=== PATIENT | female | born 1995 | race Caucasian/White ===

== ENCOUNTER 2017-10-15 08:14 | Day surgery (SDC) | payer MEDICAID ==
[2017-10-14 15:57] LABS: BASOPHILS 0.4 % (0-2); EOSINOPHILS 1.6 % (0-7); HEMATOCRIT 35.5 % (36.0-48.0); HEMOGLOBIN 11.4 g/dL (12-16); IMMATURE GRANULOCYTES 0.3 % (0-5); LYMPHOCYTES 33.2 % (15-50); MCH 24.8 pg (26.0-34.0); MCHC 32.1 g/dL (31.0-37.0); MCV 77.2 fL (80.0-100.0); MONOCYTES 6.5 % (2-11); PLATELET COUNT 269 10x3/uL (130-400); RDW 13.9 % (11.5-14.5); WBC 10.3 10x3/uL (4.8-10.8)
[~2017-10-15] VITALS: Ht 180.3 cm; Wt 122.0 kg
--- NOTE | ~2017-10-15 | OP ---
PATIENT NAME: GABRIEL MCKEON MEDICAL RECORD: [id number] :94 LOCATION:D.OPS ADMISSION DATE: SURGEON: JOSE A VIRAMONTES MD DATE OF OPERATION: 10/15/2017 PREOPERATIVE DIAGNOSES: 1. Polycystic ovarian syndrome. 2. Amenorrhea. POSTOPERATIVE DIAGNOSES: 1. Polycystic ovarian syndrome. 2. Amenorrhea. PROCEDURE: Hysteroscopy, dilation and curettage. SURGEON: Jose A Viramontes MD ESTIMATED BLOOD LOSS: Minimal. INTRAVENOUS FLUIDS: Per anesthesia record. ANESTHESIA: General endotracheal. FINDINGS: 1. Grossly normal-appearing external genitalia and cervix. 2. Grossly normal endometrial cavity with abundant proliferative phase endometrium. SPECIMENS: Endometrial curettings. COMPLICATIONS: None apparent. HYSTEROSCOPIC FLUID LOSS: Less than 100 cc of 0.9 normal. DESCRIPTION OF PROCEDURE: The patient taken to the operating room where general anesthesia was achieved without difficulty. The patient was then prepped and draped in normal sterile fashion in dorsal lithotomy position in the [facility]. Following prep and drape, the bladder was drained of less than 100 cc of clear yellow urine from the bladder and a Graves speculum was then placed into the vagina. The cervix was identified and grasped on its anterior lip with a single tooth tenaculum and a dilation was performed for approximately 6 mm, at which point, the hysteroscope was introduced under direct visualization without resistance. Survey of the endometrial canal was performed and following removal of the hysteroscope, curettage was performed in all 4 quadrants of the uterus. Specimen was sent to pathology. Following the curettage, good hemostasis was noted from the cervical os and the single-tooth tenaculum was removed. Good hemostasis was noted from the single-tooth tenaculum site. The patient tolerated the procedure well and was transferred to postanesthesia recovery stable without incident. TRANSINT:[id number] Voice Confirmation ID: [id number] DOCUMENT ID: [id number] OPERATIVE REPORT [id number] GABRIEL MCKEON MICHAEL W MD at 1034 CC: [id number] DICTATION DATE: 10/24/17 0705 COMPOSITION WORKER: 10/24/17 1216 [facility] 10/15/17 [id number] [place] [address]
[~2017-10-15 08:14] MED LIST: ZESTRIL10 MG PO
[2017-10-15 09:28] VITALS: BP 134/81; Ht 180.3 cm; Wt 122.0 kg
[2017-10-15 09:39] LABS: HCG URINE NEGATIVE (NEGATIVE)
== END 2017-10-15 13:45 | disposition home or self-care (01) ==
LOC: D.OPS 08:14 → D.PAN 10:20 → D.OPS 10:30 → D.PAN 10:30 → D.OPS 13:45
PROVIDERS: Obstetrics & Gynecology
DX: E28.2 Polycystic ovarian syndrome (principal); N91.2 Amenorrhea, unspecified

== ENCOUNTER 2018-02-26 09:23 | Day surgery (SDC) | payer MEDICAID ==
[2018-02-24 15:56] LABS: BASOPHILS 0.5 % (0-2); EOSINOPHILS 1.3 % (0-7); HEMATOCRIT 37.3 % (36.0-48.0); HEMOGLOBIN 11.8 g/dL (12-16); IMMATURE GRANULOCYTES 0.2 % (0-5); LYMPHOCYTES 21.4 % (15-50); MCH 22.9 pg (26.0-34.0); MCHC 31.6 g/dL (31.0-37.0); MCV 72.3 fL (80.0-100.0); MEAN PLATELET VOLUME 9.1 fL (7.4-10.4); MONOCYTES 6.9 % (2-11); NEUTROPHILS 69.7 % (40-80); PLATELET COUNT 285 10x3/uL (130-400); RBC 5.16 10x6/uL (4.00-5.40); WBC 10.1 10x3/uL (4.8-10.8)
[2018-02-24 16:15] LABS: CALC OSMOLALITY 277 mosm/kg (275-300); CALCIUM 8.8 mg/dL (8.5-10.1); CHLORIDE - SERUM 105 mmol/L (98-107); CREATININE - SERUM 0.7 mg/dL (0.6-1.3); GLUCOSE 112 mg/dL (74-106); POTASSIUM - SERUM 3.7 mmol/L (3.5-5.1); SODIUM 140 mmol/L (136-145); UREA NITROGEN 6 mg/dL (7-18); eGFR NON AFRICAN AMERICAN > 90 mL/min (90-120)
[~2018-02-26] VITALS: Ht 180.3 cm; Wt 124.3 kg
--- NOTE | ~2018-02-26 | OP ---
PATIENT NAME: GABRIEL MCKEON MEDICAL RECORD: [id number] :94 LOCATION:D.OPS ADMISSION DATE: SURGEON: JOSE A VIRAMONTES MD DATE OF OPERATION: 02/26/2018 PREOPERATIVE DIAGNOSES: History of endometrial hyperplasia. POSTOPERATIVE DIAGNOSIS: History of endometrial hyperplasia. PROCEDURES: Hysteroscopy and D&C. SURGEON: Jose A Viarmontes MD ANESTHESIA: General endotracheal. INTRAVENOUS FLUIDS: Per anesthesia record. COMPLICATIONS: None apparent. SPECIMENS: Endometrial curettings. FINDINGS: Grossly normal-appearing external genitalia, cervix, and endometrial canal. PROCEDURE IN DETAIL: The patient was taken to the operating room, where general anesthesia was achieved without any difficulty. The patient was prepped and draped in normal sterile fashion in dorsal lithotomy position in the [facility]. At this point, the bladder was drained of a small amount of clear yellow urine and a Graves speculum was placed into the vagina. The cervix was then grasped on its anterior lip with a single-tooth tenaculum. The patient sounded to approximately 9 cm. Dilation to approximately 6 mm was then performed without resistance, so the hysteroscope was placed into the uterus. Survey of the endometrial canal revealed no gross pathology. Hysteroscope was then removed and then curettage was performed of all 4 quadrants of the endometrium with minimal blood loss. Tissue was sent for pathology. The tenaculum was then removed with good hemostasis noted. The speculum was then removed. The patient tolerated the procedure well, was transferred to postanesthesia recovery stable without incident. TRANSINT:[id number] Voice Confirmation ID: [id number] DOCUMENT ID: [id number] JOSE A VIRAMONTES MD at 1905 CC: [id number] DICTATION DATE: 03/28/18 1420 STAKE DRIVER: 03/28/18 1516 [facility] 02/26/18 [id number] [place] [id number]
[2018-02-26 07:59] VITALS: BP 137/77; Ht 180.3 cm; Wt 124.3 kg
[2018-02-26 08:32] LABS: HCG URINE NEGATIVE (NEGATIVE)
[~2018-02-26 09:23] MED LIST changes: +PRINIVIL20 MG; +ZYRTEC10 MG PO
== END 2018-02-26 12:24 | disposition home or self-care (01) ==
LOC: D.OPS 09:23
PROVIDERS: Anesthesiology; Obstetrics & Gynecology
DX: N85.00 Endometrial hyperplasia, unspecified (principal); Z01.812 Encounter for preprocedural laboratory examination

== ENCOUNTER 2018-06-26 08:24 | Emergency (ER) | payer MEDICAID ==
[~2018-06-26] VITALS: Ht 180.3 cm; Wt 120.9 kg
[2018-06-26 08:29] VITALS: Ht 180.3 cm; Wt 120.9 kg
[2018-06-26] MEDS ORDERED: MEGACE40 MG PO (08:33)
[2018-06-26] MEDS ORDERED: NORCO 10-325 TA1 TAB PO (09:34)
[2018-06-26 09:54] VITALS: BP 149/64
== END 2018-06-26 09:54 | disposition home or self-care (01) ==
LOC: D.ER 08:24
DX: S92.351A Displaced fracture of fifth metatarsal bone, right foot, initial encounter for closed fracture (principal); W18.31XA Fall on same level due to stepping on an object, initial encounter; Y93.89 Activity, other specified; Y92.019 Unspecified place in single-family (private) house as the place of occurrence of the external cause; M79.671 Pain in right foot

== ENCOUNTER → 2019-02-16 09:28 | Outpatient (CLI) | payer MEDICAID ==
[2018-06-26 08:29] VITALS: BMI 37.1
[~2019-02-16 09:28] MED LIST changes: +GLYBURIDE5 M1 PO; +MEGACE40 MG PO; +NORCO 10-325 TA1 TAB PO; +NORMODYNE / TR100 MG PO; +PRENAVITE1 TAB PO
[2019-02-16 10:10] LABS: HEMATOCRIT 34.2 % (36.0-48.0); HEMOGLOBIN 11.3 g/dL (12-16); LYMPHOCYTES 19.3 % (15-50); MCH 26.5 pg (26.0-34.0); MCV 80.1 fL (80.0-100.0); MEAN PLATELET VOLUME 8.8 fL (7.4-10.4); NEUTROPHILS 75.3 % (40-80); PLATELET COUNT 241 10x3/uL (130-400); RBC 4.27 10x6/uL (4.00-5.40); RDW 13.6 % (11.5-14.5); WBC 9.3 10x3/uL (4.8-10.8)
[2019-02-16 10:31] LABS: ALBUMIN 2.6 g/dL (3.4-5.0); ALKALINE PHOSPHATASE 70 U/L (46-116); ALT (SGPT) 14 U/L (10-68); BILIRUBIN - DIRECT 0.06 mg/dL (0.00-0.30); BILIRUBIN - INDIRECT 0.09 mg/dL (0.00-1.00); BILIRUBIN - TOTAL 0.15 mg/dL (0.2-1.3); CALC OSMOLALITY 279 mosm/kg (275-300); CALCIUM 8.2 mg/dL (8.5-10.1); CARBON DIOXIDE 22.3 mmol/L (21.0-32.0); CHLORIDE - SERUM 107 mmol/L (98-107); CREATININE - SERUM 0.5 mg/dL (0.6-1.3); GLUCOSE 152 mg/dL (74-106); PROTEIN - SERUM 6.5 g/dL (6.4-8.2); SODIUM 140 mmol/L (136-145); UREA NITROGEN 6 mg/dL (7-18); URIC ACID 3.5 mg/dL (2.6-7.2); eGFR NON AFRICAN AMERICAN > 90 mL/min (90-120)
[2019-02-18 09:37] LABS: PROTEIN - URINE 7.6 mg/dL (0.0-11.9)
== END | disposition home or self-care (01) ==
LOC: D.LDO 09:28
PROVIDERS: ATTEND Obstetrics & Gynecology
DX: O26.893 Other specified pregnancy related conditions, third trimester (principal); Z3A.28 28 weeks gestation of pregnancy

== ENCOUNTER → 2019-02-21 11:26 | Outpatient (CLI) | payer MEDICAID ==
[2018-06-26 08:29] VITALS: BMI 37.1
== END | disposition home or self-care (01) ==
LOC: D.LDO 11:26
PROVIDERS: ATTEND Obstetrics & Gynecology
DX: O24.419 Gestational diabetes mellitus in pregnancy, unspecified control (principal); O10.013 Pre-existing essential hypertension complicating pregnancy, third trimester; Z3A.28 28 weeks gestation of pregnancy

== ENCOUNTER → 2019-03-02 17:13 | Outpatient (CLI) | payer MEDICAID ==
[2018-06-26 08:29] VITALS: BMI 37.1
[~2019-03-02 17:13] MED LIST changes: +HYDROCODON-ACE1 EA10 PO; +IBUPROFEN600 MG PO
== END | disposition home or self-care (01) ==
LOC: D.LDO 17:13
PROVIDERS: ATTEND Obstetrics & Gynecology
DX: O10.013 Pre-existing essential hypertension complicating pregnancy, third trimester (principal); Z3A.30 30 weeks gestation of pregnancy; O16.3 Unspecified maternal hypertension, third trimester

== ENCOUNTER → 2019-03-05 09:58 | Outpatient (CLI) | payer MEDICAID ==
[2018-06-26 08:29] VITALS: BMI 37.1
== END | disposition home or self-care (01) ==
LOC: D.LDO 09:58
PROVIDERS: ATTEND Student in an Organized Health Care Education/Training Program
DX: O24.419 Gestational diabetes mellitus in pregnancy, unspecified control (principal)

== ENCOUNTER → 2019-03-08 10:36 | Outpatient (CLI) | payer MEDICAID ==
[2018-06-26 08:29] VITALS: BMI 37.1
== END | disposition home or self-care (01) ==
LOC: D.LDO 10:36
PROVIDERS: ATTEND Obstetrics & Gynecology
DX: O24.913 Unspecified diabetes mellitus in pregnancy, third trimester (principal); Z3A.31 31 weeks gestation of pregnancy; O16.3 Unspecified maternal hypertension, third trimester

== ENCOUNTER → 2019-03-11 14:55 | Outpatient (CLI) | payer MEDICAID ==
[2018-06-26 08:29] VITALS: BMI 37.1
[2019-03-11 15:43] LABS: BASOPHILS 0.1 % (0-2); EOSINOPHILS 0.7 % (0-7); HEMATOCRIT 35.7 % (36.0-48.0); HEMOGLOBIN 11.4 g/dL (12-16); IMMATURE GRANULOCYTES 0.3 % (0-5); LYMPHOCYTES 19.6 % (15-50); MCH 26.1 pg (26.0-34.0); MCHC 31.9 g/dL (31.0-37.0); MCV 81.9 fL (80.0-100.0); MEAN PLATELET VOLUME 9.1 fL (7.4-10.4); MONOCYTES 6.1 % (2-11); NEUTROPHILS 73.2 % (40-80); PLATELET COUNT 243 10x3/uL (130-400); RBC 4.36 10x6/uL (4.00-5.40); RDW 13.8 % (11.5-14.5); WBC 10.7 10x3/uL (4.8-10.8)
[2019-03-11 16:04] LABS: ALBUMIN 2.5 g/dL (3.4-5.0); ALKALINE PHOSPHATASE 81 U/L (46-116); ALT (SGPT) 12 U/L (10-68); BILIRUBIN - DIRECT 0.06 mg/dL (0.00-0.30); BILIRUBIN - INDIRECT 0.12 mg/dL (0.00-1.00); BILIRUBIN - TOTAL 0.18 mg/dL (0.2-1.3); CALC OSMOLALITY 276 mosm/kg (275-300); CALCIUM 8.4 mg/dL (8.5-10.1); CARBON DIOXIDE 22.6 mmol/L (21.0-32.0); CHLORIDE - SERUM 104 mmol/L (98-107); CREATININE - SERUM 0.6 mg/dL (0.6-1.3); GLUCOSE 147 mg/dL (74-106); POTASSIUM - SERUM 3.9 mmol/L (3.5-5.1); PROTEIN - SERUM 6.4 g/dL (6.4-8.2); SODIUM 138 mmol/L (136-145); UREA NITROGEN 7 mg/dL (7-18); URIC ACID 3.4 mg/dL (2.6-7.2); eGFR NON AFRICAN AMERICAN > 90 mL/min (90-120)
== END | disposition home or self-care (01) ==
LOC: D.LDO 14:55
PROVIDERS: ATTEND Obstetrics & Gynecology
DX: O24.419 Gestational diabetes mellitus in pregnancy, unspecified control (principal); O16.9 Unspecified maternal hypertension, unspecified trimester

== ENCOUNTER → 2019-03-15 09:28 | Outpatient (CLI) | payer MEDICAID ==
[2018-06-26 08:29] VITALS: BMI 37.1
== END | disposition home or self-care (01) ==
LOC: D.LDO 09:28
PROVIDERS: ATTEND Obstetrics & Gynecology
DX: O16.3 Unspecified maternal hypertension, third trimester (principal); Z3A.32 32 weeks gestation of pregnancy

== ENCOUNTER → 2019-03-18 15:09 | Outpatient (CLI) | payer MEDICAID ==
[2018-06-26 08:29] VITALS: BMI 37.1
== END | disposition home or self-care (01) ==
LOC: D.LDO 15:09
PROVIDERS: ATTEND Obstetrics & Gynecology
DX: O24.419 Gestational diabetes mellitus in pregnancy, unspecified control (principal); O16.9 Unspecified maternal hypertension, unspecified trimester

== ENCOUNTER → 2019-03-22 09:41 | Outpatient (CLI) | payer MEDICAID ==
[2018-06-26 08:29] VITALS: BMI 37.1
[2019-03-22 11:00] LABS: BASOPHILS 0.1 % (0-2); EOSINOPHILS 0.3 % (0-7); HEMATOCRIT 37.6 % (36.0-48.0); IMMATURE GRANULOCYTES 0.2 % (0-5); LYMPHOCYTES 17.9 % (15-50); MCH 26.1 pg (26.0-34.0); MCHC 31.9 g/dL (31.0-37.0); MCV 81.9 fL (80.0-100.0); MEAN PLATELET VOLUME 9.2 fL (7.4-10.4); MONOCYTES 4.4 % (2-11); NEUTROPHILS 77.1 % (40-80); PLATELET COUNT 231 10x3/uL (130-400); RBC 4.59 10x6/uL (4.00-5.40); RDW 13.9 % (11.5-14.5); WBC 9.4 10x3/uL (4.8-10.8)
[2019-03-22 11:31] LABS: CALC OSMOLALITY 276 mosm/kg (275-300); CALCIUM 8.7 mg/dL (8.5-10.1); CARBON DIOXIDE 23.4 mmol/L (21.0-32.0); CHLORIDE - SERUM 107 mmol/L (98-107); CREATININE - SERUM 0.6 mg/dL (0.6-1.3); GLUCOSE 131 mg/dL (74-106); POTASSIUM - SERUM 3.5 mmol/L (3.5-5.1); SODIUM 139 mmol/L (136-145); UREA NITROGEN 5 mg/dL (7-18); eGFR NON AFRICAN AMERICAN > 90 mL/min (90-120)
[2019-03-22 11:41] LABS: ALBUMIN 2.5 g/dL (3.4-5.0); ALKALINE PHOSPHATASE 89 U/L (46-116); ALT (SGPT) 14 U/L (10-68); BILIRUBIN - DIRECT 0.05 mg/dL (0.00-0.30); BILIRUBIN - INDIRECT 0.15 mg/dL (0.00-1.00); URIC ACID 3.9 mg/dL (2.6-7.2)
== END | disposition home or self-care (01) ==
LOC: D.LDO 09:41
PROVIDERS: ATTEND Obstetrics & Gynecology
DX: O16.3 Unspecified maternal hypertension, third trimester (principal); Z3A.33 33 weeks gestation of pregnancy

== ENCOUNTER → 2019-03-25 18:27 | Outpatient (CLI) | payer MEDICAID ==
[2018-06-26 08:29] VITALS: BMI 37.1
== END | disposition home or self-care (01) ==
LOC: D.LDO 18:27
PROVIDERS: ATTEND Student in an Organized Health Care Education/Training Program
DX: O24.419 Gestational diabetes mellitus in pregnancy, unspecified control (principal); O10.913 Unspecified pre-existing hypertension complicating pregnancy, third trimester

== ENCOUNTER 2019-03-29 12:21 | Outpatient (CLI) | payer MEDICAID ==
[2018-06-26 08:29] VITALS: BMI 37.1
[~2019-03-29 12:21] MED LIST changes: -HYDROCODON-ACE1 EA10 PO; -IBUPROFEN600 MG PO
[2019-03-29 12:48] LABS: HEMATOCRIT 34.9 % (36.0-48.0); HEMOGLOBIN 11.3 g/dL (12-16); MCH 26.3 pg (26.0-34.0); MCHC 32.4 g/dL (31.0-37.0); MCV 81.4 fL (80.0-100.0); MEAN PLATELET VOLUME 9.5 fL (7.4-10.4); RBC 4.29 10x6/uL (4.00-5.40); WBC 9.3 10x3/uL (4.8-10.8)
[2019-03-29 13:00] LABS: CALC OSMOLALITY 277 mosm/kg (275-300); CALCIUM 8.5 mg/dL (8.5-10.1); CARBON DIOXIDE 21.2 mmol/L (21.0-32.0); CHLORIDE - SERUM 107 mmol/L (98-107); CREATININE - SERUM 0.5 mg/dL (0.6-1.3); GLUCOSE 135 mg/dL (74-106); POTASSIUM - SERUM 3.8 mmol/L (3.5-5.1); SODIUM 140 mmol/L (136-145); UREA NITROGEN 5 mg/dL (7-18); eGFR NON AFRICAN AMERICAN > 90 mL/min (90-120)
[2019-03-29 13:05] LABS: ALBUMIN 2.5 g/dL (3.4-5.0); ALKALINE PHOSPHATASE 90 U/L (46-116); ALT (SGPT) 13 U/L (10-68); BILIRUBIN - DIRECT 0.07 mg/dL (0.00-0.30); BILIRUBIN - INDIRECT 0.12 mg/dL (0.00-1.00); BILIRUBIN - TOTAL 0.19 mg/dL (0.2-1.3); PROTEIN - SERUM 6.2 g/dL (6.4-8.2); URIC ACID 3.7 mg/dL (2.6-7.2)
== END 2019-03-30 08:45 | disposition home or self-care (01) ==
LOC: D.LDO 12:21 → D.LD 23:00 → D.LDO 03-30 08:45
PROVIDERS: ATTEND Obstetrics & Gynecology
DX: O24.419 Gestational diabetes mellitus in pregnancy, unspecified control (principal); O16.3 Unspecified maternal hypertension, third trimester

== ENCOUNTER → 2019-04-01 13:32 | Outpatient (CLI) | payer MEDICAID ==
[2018-06-26 08:29] VITALS: BMI 37.1
[~2019-04-01 13:32] MED LIST changes: +HYDROCODON-ACE1 EA10 PO; +IBUPROFEN600 MG PO
== END | disposition home or self-care (01) ==
LOC: D.LDO 13:32
PROVIDERS: ATTEND Obstetrics & Gynecology
DX: O35.9XX0 Maternal care for (suspected) fetal abnormality and damage, unspecified, not applicable or unspecified (principal)

== ENCOUNTER 2019-04-05 10:18 | Outpatient (CLI) | payer MEDICAID ==
[2018-06-26 08:29] VITALS: BMI 37.1
[~2019-04-05 10:18] MED LIST changes: -HYDROCODON-ACE1 EA10 PO; -IBUPROFEN600 MG PO
[2019-04-05 11:31] LABS: CALC OSMOLALITY 275 mosm/kg (275-300); CALCIUM 8.2 mg/dL (8.5-10.1); CARBON DIOXIDE 20.9 mmol/L (21.0-32.0); CHLORIDE - SERUM 109 mmol/L (98-107); CREATININE - SERUM 0.5 mg/dL (0.6-1.3); GLUCOSE 124 mg/dL (74-106); POTASSIUM - SERUM 3.6 mmol/L (3.5-5.1); SODIUM 139 mmol/L (136-145); UREA NITROGEN 5 mg/dL (7-18); eGFR NON AFRICAN AMERICAN > 90 mL/min (90-120)
[2019-04-05 11:38] LABS: ALBUMIN 2.2 g/dL (3.4-5.0); ALKALINE PHOSPHATASE 95 U/L (46-116); ALT (SGPT) 14 U/L (10-68); BILIRUBIN - INDIRECT 0.19 mg/dL (0.00-1.00); BILIRUBIN - TOTAL 0.19 mg/dL (0.2-1.3); PROTEIN - SERUM 6.5 g/dL (6.4-8.2); URIC ACID 3.7 mg/dL (2.6-7.2)
[2019-04-05 11:45] LABS: BASOPHILS 0.2 % (0-2); EOSINOPHILS 0.3 % (0-7); HEMATOCRIT 34.5 % (36.0-48.0); HEMOGLOBIN 10.8 g/dL (12-16); IMMATURE GRANULOCYTES 0.3 % (0-5); LYMPHOCYTES 16.3 % (15-50); MCH 25.7 pg (26.0-34.0); MCHC 31.3 g/dL (31.0-37.0); MCV 81.9 fL (80.0-100.0); MEAN PLATELET VOLUME 9.7 fL (7.4-10.4); MONOCYTES 5.4 % (2-11); NEUTROPHILS 77.5 % (40-80); PLATELET COUNT 233 10x3/uL (130-400); RBC 4.21 10x6/uL (4.00-5.40); RDW 14.2 % (11.5-14.5); WBC 9.6 10x3/uL (4.8-10.8)
[2019-04-05 11:48] LABS: BILIRUBIN - DIRECT 0.05 mg/dL (0.00-0.30)
== END 2019-04-05 12:20 | disposition home or self-care (01) ==
LOC: D.LDO 10:18
PROVIDERS: ATTEND Obstetrics & Gynecology
DX: O24.419 Gestational diabetes mellitus in pregnancy, unspecified control (principal); O10.919 Unspecified pre-existing hypertension complicating pregnancy, unspecified trimester

== ENCOUNTER → 2019-04-08 18:23 | Outpatient (CLI) | payer MEDICAID ==
[2018-06-26 08:29] VITALS: BMI 37.1
[~2019-04-08 18:23] MED LIST changes: +HYDROCODON-ACE1 EA10 PO; +IBUPROFEN600 MG PO
== END | disposition home or self-care (01) ==
LOC: D.LDO 18:23
PROVIDERS: ATTEND Obstetrics & Gynecology
DX: O16.9 Unspecified maternal hypertension, unspecified trimester (principal); O24.419 Gestational diabetes mellitus in pregnancy, unspecified control

== ENCOUNTER → 2019-04-12 12:44 | Outpatient (CLI) | payer MEDICAID ==
[2018-06-26 08:29] VITALS: BMI 37.1
[2019-04-12 13:35] LABS: HEMATOCRIT 36.1 % (36.0-48.0); HEMOGLOBIN 11.4 g/dL (12-16); MCHC 31.6 g/dL (31.0-37.0); MCV 82.2 fL (80.0-100.0); MEAN PLATELET VOLUME 9.4 fL (7.4-10.4); RBC 4.39 10x6/uL (4.00-5.40); RDW 14.3 % (11.5-14.5); WBC 10.5 10x3/uL (4.8-10.8)
[2019-04-12 13:42] LABS: CALC OSMOLALITY 277 mosm/kg (275-300); CALCIUM 8.5 mg/dL (8.5-10.1); CARBON DIOXIDE 21.6 mmol/L (21.0-32.0); CHLORIDE - SERUM 108 mmol/L (98-107); CREATININE - SERUM 0.6 mg/dL (0.6-1.3); GLUCOSE 128 mg/dL (74-106); POTASSIUM - SERUM 3.9 mmol/L (3.5-5.1); SODIUM 139 mmol/L (136-145); UREA NITROGEN 7 mg/dL (7-18); eGFR NON AFRICAN AMERICAN > 90 mL/min (90-120)
[2019-04-12 13:46] LABS: ALT (SGPT) 12 U/L (10-68); URIC ACID 4.2 mg/dL (2.6-7.2)
== END | disposition home or self-care (01) ==
LOC: D.LDO 12:44
PROVIDERS: ATTEND Obstetrics & Gynecology
DX: O35.9XX0 Maternal care for (suspected) fetal abnormality and damage, unspecified, not applicable or unspecified (principal)

== ENCOUNTER → 2019-04-14 11:31 | Outpatient (CLI) | payer MEDICAID ==
[2018-06-26 08:29] VITALS: BMI 37.1
== END | disposition home or self-care (01) ==
LOC: D.LDO 11:31
PROVIDERS: ATTEND Obstetrics & Gynecology
DX: O24.419 Gestational diabetes mellitus in pregnancy, unspecified control (principal); Z3A.36 36 weeks gestation of pregnancy; O16.3 Unspecified maternal hypertension, third trimester

== ENCOUNTER 2019-04-18 11:45 | Inpatient (IN) | payer MEDICAID ==
[~2019-04-18] VITALS: Ht 180.3 cm; Wt 128.4 kg
[~2019-04-18 11:45] MED LIST changes: -HYDROCODON-ACE1 EA10 PO; -IBUPROFEN600 MG PO
[2019-04-18 12:07] LABS: PROTEIN - URINE 11.3 mg/dL (0.0-11.9)
[2019-04-18] MEDS ORDERED: GLYBURIDE5 M1 PO (13:15)
[2019-04-18] MEDS ORDERED: NORMODYNE / TR100 MG PO (13:16)
[2019-04-18 13:17] VITALS: BP 123/65; Ht 180.3 cm; Wt 128.4 kg
[2019-04-18 13:47] LABS: HEMATOCRIT 38.9 % (36.0-48.0); HEMOGLOBIN 12.5 g/dL (12-16); MCH 26.5 pg (26.0-34.0); MCHC 32.1 g/dL (31.0-37.0); MCV 82.4 fL (80.0-100.0); MEAN PLATELET VOLUME 10.2 fL (7.4-10.4); RBC 4.72 10x6/uL (4.00-5.40); RDW 14.4 % (11.5-14.5); WBC 10.6 10x3/uL (4.8-10.8)
--- NOTE | 2019-04-18 14:53 | NUR ---
1443 BABY GIRL 1444 PLAC[address]
--- NOTE | 2019-04-18 15:39 | NUR ---
1530 FUNUS MIDLINE AND 2 FINGERS BELOW UNBILICUS AND FIRM. RASHARD PAD IN PLACE, WITH SCANT DARK RED DRAINAGE
[2019-04-18 16:00] VITALS: BP 143/66
--- NOTE | 2019-04-18 16:00 | NUR ---
RECEIVED PT FROM THE RECOVERY ROOM POST C/S BY DR. PINTO. ABDOMEN PALPATES SOFT, FUNDUS FIRM, U/2, SMALL RUBRA LOCHIA, NO CLOTS. CARLOS CATH IN PLACE DRAINING YELLOW URINE, 150 ML'S NOTED IN UROMETER. SCD'S ON, AND CONNECTED TO PUMP. CURRENT BAG OF IV PITOCIN HAS APPROX 100 CC'S LEFT IN BAG, INFUSING AT MODERATE RATE OFF PUMP, SEE EMAR FOR MED ADM RECORDS. PT DENIES SOB, NAUSEA, OR DIFFICULTY BREATHING. ICE WATER SERVED TO PT AT HER REQUEST. WARM BLANKET PROVIDED AT PT'S REQUEST. SRUP X 2, CALL LIGHT AND PHONE WITHIN REACH.
--- NOTE | 2019-04-18 16:15 | NUR ---
FUNDUS FIRM, U/2, SMALL RUBRA LOCHIA, NO CLOTS EXPELLED. POWER DRIVEN BRUSH MAKER/DILAUDID EXPLAINED TO PT, WITH BUTTON PROVIDED FOR USE, SEE EMAR FOR ALL MEDS ADM BY THIS RN. SRUP X2, CALL LIGHT AND PHONE WITHIN REACH.
--- NOTE | 2019-04-18 16:30 | NUR ---
FUNDUS FIRM, U/2, SMALL RUBRA LOCHIA, NO CLOTS EXPELLED. PT DENIES ALL NEEDS AT THIS TIME. PT'S AT BEDSIDE. PT DENIES NEEDS AT THIS TIME. SRUP X2, CALL LIGHT AND PHONE WITHIN REACH.
[2019-04-18 17:15] VITALS: BP 141/69
[2019-04-18 17:30] VITALS: BP 143/71
[2019-04-18 18:15] VITALS: BP 136/64
--- NOTE | 2019-04-18 18:30 | NUR ---
TO PT'S ROOM, FUNDUS FIRM, U/1, SMALL RUBRA LOCHIA, NO CLOTS. ABDOMEN PALPATES SOFT. PERICARE DONE WITH WARM WET WASHCLOTHS, PERIPADS/TOWELS/CHUX CHANGED. PT REPOSITIONED TO RIGHT TILT. DRESSING OVER INCISION C/D/I. NEW ICE PACK PLACED OVER GOWN TO INCISION. PT USING INCENTIVE SPIROMETER WELL, COUGHING AND DEEP BREATHING EXERCISES DONE WELL BY PT. BUFFING MACHINE OPERATOR BUTTON CONTINUES TO BE WITHIN REACH. SRUP X2, CALL LIGHT AND PHONE WITHIN REACH. PT'S CONTINUES TO BE AT BEDSIDE.
[2019-04-18 19:15] VITALS: BP 145/70
--- NOTE | 2019-04-18 19:15 | NUR ---
PT REC'D IN BED AT THIS TIME. STATES PAIN IS A 5 AT THIS TIME. PT ENCOURAGED TO USE FLOATLIGHT POWDER MIXER FOR PAIN CONTROL AT THIS TIME. IV TO THE LEFT WRIST AT 125 ML PER HOUR. CARLOS PATENT WITH 50 ML OF URINE NOTED. DRESSING TO ABDOMEN INTACT. FUNDUS FIRM AND MIDLINE WITH SMALL LOCHIA NOTED. U/2. NO DISTRESS NOTED. Tracy JOHNSON RN
--- NOTE | 2019-04-18 20:15 | NUR ---
PT STATES THAT PAIN IS A 4 AT THIS TIME. PT ENCOURAGED TO CINTINUE TO USE WEATHERIZATION CREW LEADER FOR PAIN CONTROL. EATING JELLO. TOLERATING CLEAR LIQUIDS WITHOUT NAUSEA/VOMITING. Tracy JOHNSON RN
[2019-04-18 20:47] LABS: BASOPHILS 0.2 % (0-2); EOSINOPHILS 0.2 % (0-7); HEMATOCRIT 34.3 % (36.0-48.0); HEMOGLOBIN 10.9 g/dL (12-16); IMMATURE GRANULOCYTES 0.2 % (0-5); LYMPHOCYTES 19.8 % (15-50); MCHC 31.8 g/dL (31.0-37.0); MCV 81.9 fL (80.0-100.0); MEAN PLATELET VOLUME 9.5 fL (7.4-10.4); MONOCYTES 7.3 % (2-11); NEUTROPHILS 72.3 % (40-80); PLATELET COUNT 194 10x3/uL (130-400); RBC 4.19 10x6/uL (4.00-5.40); RDW 14.4 % (11.5-14.5); WBC 12.8 10x3/uL (4.8-10.8)
--- NOTE | 2019-04-18 21:12 | NUR ---
DR NOBLE CALLED AT THIS TIME. AND INFORMED OF PT DESIRE TO NORMALIZE DUE TO IN NURSERY AND UNABLE TO COME TO PT ROOM PT WANTS TO GO TO NURSERY TO BE WITH INFANT. ORDERS TO D/C IV FLUIDS, SENIOR JAVA WEB DEVELOPER, AND CARLOS CATH REC'D. MAY NORMALIZE PATIENT. NORCO FOR PAIN. Tracy JOHNSON RN
--- NOTE | 2019-04-18 21:30 | NUR ---
PT REC'D IN BED AT THIS TIME. CARLOS CATH REC'D AT THIS TIME WITH 50 ML IN UROMETER. IV CONVERTED TO SALINE LOCK AND PT UP TO BATHROOM FOR PERICARE. PT CHANGED INTO HER OWN CLOTHING AT THIS TIME. TOLERATED WELL. Tracy JOHNSON RN
--- NOTE | 2019-04-18 22:00 | NUR ---
PT PROVIDED WITH A SANDWICH TRAY AT THIS TIME. Tracy JOHNSON RN
--- NOTE | 2019-04-18 22:30 | NUR ---
PT TO NURSERY VIA WHEELCHAIR AT THIS TIME. Tracy JOHNSON RN
[2019-04-19 00:16] VITALS: BP 133/71
--- NOTE | 2019-04-19 00:16 | NUR ---
VSS AT THIS TIME. PT STATES THAT PAIN IS A 4. PT HAD VOIDED 100 ML AND HAD PASSED GAS AT THIS TIME. Tracy JOHNSON RN
--- NOTE | 2019-04-19 00:21 | NUR ---
PT MEDICATED WITH TORADOL 10 MG PO AT THIS TIME. Tracy JOHNSON RN
--- NOTE | 2019-04-19 00:49 | NUR ---
AMBIEN 10 MG GIVEN AT THIS TIME. Tracy JOHNSON RN
[2019-04-19 05:53] LABS: BASOPHILS 0.3 % (0-2); EOSINOPHILS 0.4 % (0-7); HEMATOCRIT 38.5 % (36.0-48.0); HEMOGLOBIN 12.3 g/dL (12-16); IMMATURE GRANULOCYTES 0.6 % (0-5); LYMPHOCYTES 21.9 % (15-50); MCH 26.2 pg (26.0-34.0); MCHC 31.9 g/dL (31.0-37.0); MCV 81.9 fL (80.0-100.0); NEUTROPHILS 70.8 % (40-80); PLATELET COUNT 213 10x3/uL (130-400); RDW 14.5 % (11.5-14.5); WBC 10.2 10x3/uL (4.8-10.8)
[2019-04-19 06:30] VITALS: BP 137/86
--- NOTE | 2019-04-19 07:30 | NUR ---
DR PINTO TO ROOM. REMOVES ABDOMINAL DRESSING. LUIS INTACT. NO REDNESS, SWELLING OR DRAINAGE NOTED.
[2019-04-19 07:41] VITALS: BP 142/88
--- NOTE | 2019-04-19 07:41 | NUR ---
RECEIVED PT LYING IN SEMI-FERRARO'S POSITION. AWAKE. VSS. HRRR WITHOUT AUDIBLE MURMUR. BBS CLEAR. BS X 4. ABDOMEN SOFT/NON-DISTENDED. FUNDUS FIRM AT U/1. RUBRA LOCHIA SMALL AMT. ABDOMINAL INCISION WITH LUIS. NO REDNESS, SWELLING OR DRAINAGE NOTED. NEG HOMANS' SIGN. PPP. MILD NON-PITTING EDEMA NOTED TO BLE. PT STATES PAIN OF "2" ON 0-10 PAIN SCALE. STATES PASSING GAS. NO BM. DENIES PASSING CLOTS OR HEAVY BLEEDING. STATES HAS VOIDED X 4 SINCE CARLOS REMOVED. SR UP X 2. CALL LIGHT IN REACH.
[2019-04-19 08:11] LABS: RAPID PLASMA REAGIN Non Reactive (Non Reactive)
--- NOTE | 2019-04-19 09:18 | NUR ---
PT C/O ABDOMINAL CRAMPING AND SHOULDER PAIN OF "5" ON 0-10 PAIN SCALE. TORADOL 10 MG AND NORCO 10/325 GIVEN PO ORDERED. PT INSTRUCTED ON MEDS. VERBALIZES UNDERSTANDING.
--- NOTE | 2019-04-19 09:50 | NUR ---
PT. PASSED TENNIS BALL SIZED CLOT INTO TOILET.
--- NOTE | 2019-04-19 09:55 | NUR ---
PT UP TO SHOWER. LINENS CHANGED PER NURSING STUDENTS. PT JENNIE WELL.
--- NOTE | 2019-04-19 11:30 | NUR ---
PT LYING TO LEFT SIDE IN BED. EYES CLOSED. RESP NON-LABORED. PT NOT DISTURBED TO ALLOW FOR REST.
[2019-04-19 12:17] VITALS: BP 138/77
--- NOTE | 2019-04-19 12:30 | NUR ---
PT AMBULATORY IN HALLS. JENNIE ACTIVITY WELL.
--- NOTE | 2019-04-19 13:09 | NUR ---
C/O RIGHT SHOULDER ACHING 5/10 REQUESTED PAIN MEDS AND SOMETHING FOR GAS. MYLICON 80MG AND NORCO-5MG GIVEN PO AFTER DISCUSSING PAIN MANGEMENT OPTIONS. DISCUSSED LLD WITH HOB FLAT TO PROMOTE PASSING OF GAS. PT STATES SHE IS PASSING GAS. ABD SOFT ROUND AND NO PURCUSSION NOTED. CALL LIGHT IN REACH. CO SIGNED---YAMILETH MURRAY, RN NPC SLAT BASKET MAKER HELPER MACHINE.
--- NOTE | 2019-04-19 14:30 | NUR ---
PT AMBULATORY IN HALLS. JENNIE ACTIVITY WELL.
--- NOTE | 2019-04-19 15:30 | NUR ---
PT AMBULATORY IN HALLS. JENNIE ACTIVITY. DENIES C/O.
[2019-04-19 16:50] VITALS: BP 151/89
--- NOTE | 2019-04-19 16:53 | NUR ---
PT C/O INCISIONAL PAIN OF "6" ON 0-10 PAIN SCALE. NORCO 10/325, TORADOL 10 MG AND MYLICON 80 MG GIVEN PO ORDERED. PT INSTRUCTED ON MEDS. VERBALIZES UNDERSTANDING.
--- NOTE | 2019-04-19 18:30 | NUR ---
PT SITTING UP IN BED. PT DENIES C/O PAIN OR NEEDS.
[2019-04-19 19:46] VITALS: BP 134/64
--- NOTE | 2019-04-19 19:46 | NUR ---
PT REC'D IN BED DENIES PAIN. SALINE LOCK REMOVED. NO DISTRESS NOTED. SEE FLOWSHEET FOR ASSESSMENT. Tracy JOHNSON RN
--- NOTE | 2019-04-19 21:00 | NUR ---
PT COMPLAINS OF GAS. MYLICON GIVEN. Tracy JOHNSON RN
--- NOTE | 2019-04-19 21:45 | NUR ---
PT COMPLAINS OF PAIN. NORCO GIVEN ALONG WITH AMBIEN FOR SLEEP. Tracy JOHNSON, RN
--- NOTE | 2019-04-19 22:55 | NUR ---
PT SLEEPING AT THIS TIME WITHOUT COMPLAINTS. RESPS EVEN AND UNLABORED. Tracy JOHNSON RN
--- NOTE | 2019-04-20 00:57 | NUR ---
PT STILL WITH GAS. MYLICON GIVEN AT THIS TIME. Tracy JOHNSON RN
--- NOTE | 2019-04-20 02:50 | NUR ---
PT AMBULATING IN HALLWAY WITH , DENIES NEEDS AT THIS TIME.
--- NOTE | 2019-04-20 08:10 | NUR ---
DR. PINTO ON UNIT, TO ROOM FOR ROUNDS.
--- NOTE | 2019-04-20 08:20 | NUR ---
DR. PINTO ON UNIT, STATING "SHE MAY BE DISCHARGED HOME, AND HER SCRIPTS ARE ON HER CHART".
[2019-04-20] MEDS ORDERED: IBUPROFEN600 MG PO (08:25)
[2019-04-20] MEDS ORDERED: HYDROCODON-ACE1 EA10 PO (08:25)
--- NOTE | 2019-04-20 08:30 | NUR ---
AM ASSESSMENT COMPLETED, SEE FLOW SHEET. PT DENIES ALL NEEDS AT THIS TIME. SEE EMAR FOR ALL MEDS ADM BY THIS RN. PERIPANTIES/PADS PROVIDED FOR DISCHARGE.
--- NOTE | 2019-04-20 08:35 | NUR ---
PT STATES SHE DOES NOT WANT TO TAKE THE FLU VACCINE, THE TDAP OR MMR TODAY.
[2019-04-20 08:37] VITALS: BP 144/81
--- NOTE | 2019-04-20 08:45 | NUR ---
DISCHARGE INSTRUCTIONS EXPLAINED TO PT, COPIES PROVIDED TO PT ALONG WITH PRESCRIPTIONS, APPT CARD AND PP/EMERGENCY SHEETS. PT DENIES ALL QUESTIONS, AND PT WISHES TO WALK OFF UNIT INSTEAD OF TAKING A WHEELCHAIR. PT AMBULATORY OFF UNIT, IN STABLE CONDITION WITH HER CARRYING ALL OF THE PT'S BELONGINGS.
--- NOTE | 2019-05-05 17:06 | OP ---
PATIENT NAME: GABRIEL MCKEON MEDICAL RECORD: [id number] :94 LOCATION:[facility] [id number].1276 ADMISSION DATE:04/18/19 SURGEON: JOSE A PINTO MD DATE OF OPERATION: 04/18/2019 PREOPERATIVE DIAGNOSES: 1. Chronic hypertension. 2. A2 gestational diabetes. 3. Term infant in complete breech presentation. POSTOPERATIVE DIAGNOSES: 1. Chronic hypertension. 2. A2 gestational diabetes. 3. Term in complete breech presentation. PROCEDURE: Primary low transverse section. ESTIMATED BLOOD LOSS: 1000 cc. ANESTHESIA: Regional via spinal. FINDINGS: 1. Viable in complete breech presentation. 2. Apgars 9 at one and 9 at five. 3. Placenta delivered manually and intact. 4. Three-vessel cord. 5. Normal adnexa bilaterally. SPECIMENS: Include placenta and cord for gases. COMPLICATIONS: None apparent. DESCRIPTION OF PROCEDURE: The patient was taken to the operating room where regional anesthesia was achieved without any difficulty. The patient was then prepped and draped in normal sterile fashion in the dorsal supine position. SCDs were on and functioning properly. A Benedict catheter had been placed and was draining freely. At this point, a Pfannenstiel skin incision was made and excised down to the underlying subcutaneous fat to level of the fascia. The fascia was then excised in the midline with a scalpel and extended bilaterally using the Oleary scissors. Superior and inferior aspects of fascial incision were then grasped with Sara clamps times 2, tented upward, and sharply dissected from the underlying rectus muscle using the Bovie cautery and Oleary scissors. The rectus muscles were then bluntly in the midline. The peritoneum entered sharply at the superior aspect of the incision. Further dissection of the peritoneum was performed using the Metzenbaum scissors and a bladder blade was placed into the pelvis. A bladder flap was created by excising the anterior leaf of the broad ligament across the lower uterine segment. A low transverse incision was then made with a scalpel and extended using the Pelosi method. The breach was at the incision site and found to be backup rotated to the patient left. The breech was converted to a backup presentation by placing the index fingers on the hips and rotation without resistance. At this point, the breach was delivered into a shanta breech presentation resulting in the delivery of both legs. The right arm was then gently brought across the baby's chest resulting in delivery of the right arm and the same was performed on the left arm. The vertex was then delivered atraumatically. The was OPERATIVE REPORT [id number] GABRIEL MCKEON bulb suctioned upon delivery. Cord was clamped times 2, cut, and the infant was handed to the awaiting nursery team. Cord was obtained for gases. The placenta was then removed manually and intact. A 3-vessel cord was noted. The uterus was exteriorized, cleared of all clots and debris and vigorously massaged. A good uterine tone was noted. The uterine incision was repaired with 0 Vicryl in a running locked fashion times 2 with good hemostasis noted. Posterior cul-de-sac was then thoroughly irrigated and the uterus was replaced into the pelvis. The anterior cul-de-sac was then irrigated and the uterine incision was found to be hemostatic. Counts were correct times 2 for needles, sponges, and instruments. The fascia was repaired with 0 loop PDS times 1. The skin was repaired with 2-0 plain gut, and the skin repaired with malik. The patient tolerated the procedure well, transferred to postanesthesia recovery stable and without incident. TRANSINT:[id number] Voice Confirmation ID: [id number] DOCUMENT ID: [id number] JOSE A PINTO MD at 1706 CC: [id number] DICTATION DATE: 05/01/19 1016 CLINICAL SCIENTIST: 05/01/19 1114 DIS IN 04/20/19 [facility] [address] [place] [address]
== END 2019-04-20 08:45 | disposition home or self-care (01) | DRG 788 ==
LOC: D.LDO 11:45 → D.LABREF 11:45 → D.LD 13:16
PROVIDERS: ADMIT Obstetrics & Gynecology; ATTEND Obstetrics & Gynecology
PROC: 10D00Z1 Extraction of Products of Conception, Low, Open Approach (ICD-10-PCS; principal; 2019-04-18 13:00)
DX: O14.04 Mild to moderate pre-eclampsia, complicating childbirth (principal); Z3A.36 36 weeks gestation of pregnancy; Z37.0 Single live birth; O32.1XX0 Maternal care for breech presentation, not applicable or unspecified; O24.429 Gestational diabetes mellitus in childbirth, unspecified control; O36.8330 Maternal care for abnormalities of the fetal heart rate or rhythm, third trimester, not applicable or unspecified

== ENCOUNTER 2019-08-03 09:15 | Emergency (ER) | payer MEDICAID ==
[~2019-08-03] VITALS: Ht 180.3 cm; Wt 123.2 kg
[~2019-08-03 09:15] MED LIST changes: +HYDROCODON-ACE1 EA10 PO; +IBUPROFEN600 MG PO
[2019-08-03 09:36] VITALS: Ht 180.3 cm; Wt 123.2 kg
[2019-08-03] MEDS ORDERED: LISINOPRIL20 MG PO (09:38)
[2019-08-03] MEDS ORDERED: BROMFED-DM COU473 ML PO (09:38)
[2019-08-03] MEDS ORDERED: STERAPRED 5MG 65 M1 PO (09:38)
[2019-08-03] MEDS ORDERED: SPRINTEC 28 DA1 EAC1 PO (09:38)
[2019-08-03 10:24] LABS: BASOPHILS 0.3 % (0-2); EOSINOPHILS 0.1 % (0-7); HEMATOCRIT 34.9 % (36.0-48.0); HEMOGLOBIN 11.3 g/dL (12-16); IMMATURE GRANULOCYTES 0.3 % (0-5); LYMPHOCYTES 6.2 % (15-50); MCH 25.5 pg (26.0-34.0); MCHC 32.4 g/dL (31.0-37.0); MCV 78.8 fL (80.0-100.0); MEAN PLATELET VOLUME 8.8 fL (7.4-10.4); NEUTROPHILS 91.1 % (40-80); PLATELET COUNT 233 10x3/uL (130-400); RBC 4.43 10x6/uL (4.00-5.40); RDW 15.9 % (11.5-14.5)
[2019-08-03 10:25] LABS: CALC OSMOLALITY 278 mosm/kg (275-300); CALCIUM 8.5 mg/dL (8.5-10.1); CARBON DIOXIDE 24.5 mmol/L (21.0-32.0); CHLORIDE - SERUM 103 mmol/L (98-107); CREATININE - SERUM 0.8 mg/dL (0.6-1.3); SODIUM 137 mmol/L (136-145); UREA NITROGEN 9 mg/dL (7-18); eGFR NON AFRICAN AMERICAN > 90 mL/min (90-120)
[2019-08-03 10:27] LABS: GLUCOSE 199 mg/dL (74-106)
[2019-08-03 10:31] LABS: ALBUMIN 3.2 g/dL (3.4-5.0); ALKALINE PHOSPHATASE 64 U/L (30-120); ALT (SGPT) 13 U/L (10-68); BILIRUBIN - TOTAL 0.19 mg/dL (0.2-1.3); PROTEIN - SERUM 7.8 g/dL (6.4-8.2)
[2019-08-03 10:56] VITALS: BP 128/69
== END 2019-08-03 11:01 | disposition home or self-care (01) ==
LOC: D.ER 09:15
PROVIDERS: Emergency Medicine
DX: N93.9 Abnormal uterine and vaginal bleeding, unspecified (principal); I10 Essential (primary) hypertension